=== PATIENT | female | born 1965 | race Native Hawaiian/Other Pacific Islander ===

== ENCOUNTER 2018-03-06 02:16 | Outpatient (CLI) | payer OTHER ==
[~2018-03-06 02:16] MED LIST: HYDROCHLOROT50 MG PO
== END 2018-03-06 02:19 | disposition short-term general hospital (02) ==
LOC: AMB 02:16
DX: R07.89 Other chest pain (principal); I10 Essential (primary) hypertension
CPT/HCPCS: A0425; A0427

== ENCOUNTER 2018-03-06 02:23 | Emergency (ER) | payer OTHER ==
[~2018-03-06] VITALS: Ht 162.6 cm; Wt 78.9 kg
[2018-03-06 02:55] LABS: PLATELET COUNT 215 K/uL (152-353)
[2018-03-06 03:18] LABS: POTASSIUM 4.1 mmol/L (3.6-5.2)
[2018-03-06 03:56] VITALS: BP 158/89; TEMP 97.9
== END 2018-03-06 04:14 | disposition home or self-care (01) ==
LOC: ED 02:23
DX: M94.0 Chondrocostal junction syndrome [Tietze] (principal)
CPT/HCPCS: 36415; 80053; 84484; 85027; 93005; 99283